=== PATIENT | female | born 1995 | race Caucasian/White ===

== ENCOUNTER 2020-09-13 17:17 | Emergency (ER) | payer SELFPAY ==
--- NOTE | 2020-09-13 18:13 | ER ---
Nurse's Notes [facility] Name: Tyshawn Argueta Age: 24 yrs Sex: Female : 1995 Arrival Date: 09/13/2020 Time: 17:20 Bed Waiting Private MD: Diagnosis: ED Course: 09/13 17:20 Patient arrived in ED. [id number] Administered Medications: No medications were administered Outcome: 18:13 Patient left the ED. ss Signatures: Jaclyn Watts RN RN Oscar Hamm [id number]
== END 2020-09-13 18:13 | disposition left against medical advice (07) ==
LOC: ER 17:17
DX: Z02.9 Encounter for administrative examinations, unspecified (principal)